=== PATIENT | female | born 1930 | race African-American/Black ===

== ENCOUNTER 2017-11-08 10:00 | Emergency (ER) | payer MEDICAID ==
[~2017-11-08] VITALS: Ht 160 cm; Wt 65.3 kg
[2017-11-08 16:35] VITALS: BP 136/81
== END 2017-11-08 16:42 | disposition home or self-care (01) ==
LOC: ER 11:09
DX: M13.851 Other specified arthritis, right hip (principal)
CPT/HCPCS: 73502; 99284